=== PATIENT | male | born 1990 | race Caucasian/White ===

== ENCOUNTER 2018-04-04 15:12 | Emergency (ER) | payer BC ==
--- NOTE | 2018-04-04 15:29 | UC ---
Abdominal Pain Male HPI - HPI Summary HPI Summary: A 28 y/o male presents to [facility] c/o intermittent abdominal pain. Currently, the patient is experiencing constant abdominal pain, that is characterized as a ache pain. He noted that it is not a lot of pain, but it is "off". Pt states he has had the pain for 3-4 weeks. He initially thought it was a pulled muscle, but the pain never subsided. He stated that the pain is fairly steady (not waxing and waning), but intermittent. Pt went to his PCP this week recommended for an ultrasound. Pt states his girlfriend, a nurse, recommended he come today. Pt has not taken any analgesia.He denies anything "popping out" near his testicles or abdomen, but he does experience little groin pain sometimes. He also denies any N/V/D, hematuria, headache, blurred vision, fever, chills, or rash. No chest pain. No SOB. No mann, vision changs. No trauma. Does not wake from sleep. Does not change with position, food. Nothing aggravates or alleviates the pain. No analgesia taken. Last known BM was yesterday. No one around him is sick. No recent trauma. He has experienced nothing like this before. Patient has taken no medications for pain. No allergies to medications. No known allergies. No prescribed medications. PMHx of belly button hernia (and surgery), denies tonsillectomy and ear tubes. FHx of no Crohns disease. 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 - History of Current Complaint Stated Complaint: ABDOMINAL PAIN Hx Obtained From: Patient Onset/Duration: Sudden Onset, Lasting Weeks - 3 weeks, Still Present Timing: Constant - Currently Pain Scale Used: 0-10 Numeric Radiates: Yes Radiates to: Back - Constant Character: Aching Aggravating Factor(s): Nothing Alleviating Factor(s): Nothing Associated Signs And Symptoms: Positive: Back Pain, Other - Groin pain.. Negative: Fever, Urinary Symptoms, Nausea, Vomiting, Diarrhea - Allergies/Home Medications Allergies/Adverse Reactions: Allergies Allergy/AdvReac Type Severity Reaction Status Date / Time No Known Allergies Allergy Verified 04/04/18 16:20 PMH/Surg Hx/FS Hx/Imm Hx - Additional Past Medical History Additional PMH: POSITIVE: Belly Button Hernia (and surgery). Previously Healthy: Yes Other History Of: Negative For: Anticoagulant Therapy - Surgical History Surgical History: Yes - Belly Button Hernia, denies tonsillectomy and ear tubes - Family History Known Family History: Positive: Other - NEGATIVE: Crohns Disease non- contributory - Social History Occupation: Employed Full-time - Construction Lives: With Family Alcohol Use: Weekly - 1 per week Substance Use Type: None Smoking Status (MU): Never Smoked Tobacco Review of Systems Constitutional: Negative Skin: Negative Eyes: Negative ENT: Negative Respiratory: Negative Cardiovascular: Negative Gastrointestinal: Abdominal Pain - POSITIVE Genitourinary: Negative, Other - POSITIVE: Groin pain Motor: Negative Neurovascular: Negative Musculoskeletal: Other: - POSITIVE: Back pain Neurological: Negative Psychological: Negative Is Patient Immunocompromised?: No All Other Systems Reviewed And Are Negative: Yes Physical Exam - Summary Physical Exam Summary: pt was triaged on downtime paperwork Vital Signs Reviewed: Yes A+Ox3, no distress. pt easily changes positon, walking, onto exam table, lay down Eyes: Conjunctiva Clear, JAMES. EOM intact and full ENT: Hearing grossly normal TM x 2 clear, mmoist, uvula midline, no exudate, no erythema Neck: Positive: Supple Respiratory: Positive: No respiratory distress, No accessory muscle use + CTA throughout no w/r Cardiovascular: RRR nl s1, s2 no m/r CBT <2 sec abd soft + BS nd no guarding, no distension No CVA Pt with mild left lower abd pain, soft Musculoskeletal Exam: BHATT x 4 without difficulty Strength Intact, ROM Intact Neurological: Positive: Alert, + sensation throughout Psychological: Positive: Normal Response To Family Skin: Positive: no rash, no ecchymosis Triage Information Reviewed: Yes Vital Signs Reviewed: Yes Abd Pain Male Course/Dx - Course Course Of Treatment: Pt with 3-4 weeks low abd pain. STates mild. no analgesia taken. No other sx. Pt saw his PCP this week - referred for u/s next week. Pt with stable vital signs and non concerning exam. After a lengthy discussion - will check urine. If non concerning will discharge home. motrin/apap. keep ultrasound appt. if fever, increased pain, vomiting or any other concerns recommend go directly to ED. Pt comfortable and in agreement with plan. declined work note - Differential Dx/Clinical Impression Provider Diagnoses: abdominal pain Discharge - Sign-Out/Discharge Documenting (check all that apply): Patient Departure - DISCHARGE All imaging exams completed and their final reports reviewed: No Studies - Discharge Plan Condition: Stable Disposition: HOME Patient Education Materials: Abdominal Pain (ED) Referrals: Sil Holt RN [Primary Care Provider] - Additional Instructions: - The doctor that evaluated you thinks it is okay for you to go home today. Your examination, vital signs, and urine results are reassuring - It is recommended you alternate ibuprofen (Advil, Motrin) and tylenol as needed for pain - Drink plenty of non-alcoholic, non-caffinated beverages - Keep your ultrasound as scheduled next week - if you have increased or uncontrolled pain, vomiting, fever, difficulty urinating, or ANY other increasing concerns, it is recommended you go directly to the emergency department for evaluation - Billing Disposition and Condition Condition: STABLE Disposition: Home - Attestation Statements Document Initiated by Marcelibe: Yes Documenting Scribe: Garcia Salamanca Provider For Whom Deni is Documenting (Include Credential): Araceli Bennett MD Scribe Attestation: Garcia Watkins, scribed for Araceli Bennett MD on 04/04/18 at 1710. Scribe Documentation Reviewed: Yes Provider Attestation: The documentation as recorded by the Garcia hendrix accurately reflects the service I personally performed and the decisions made by me, Araceli Bennett MD
[2018-04-04] MEDS ORDERED: Acetaminophen TAB* 325 MG PO ONE (15:37)
== END 2018-04-04 16:17 | disposition home or self-care (01) ==
LOC: UCEAST 15:12
DX: R10.32 Left lower quadrant pain (principal)
CPT/HCPCS: 81003; 99201; A9270-GY; G0463